=== PATIENT | female | born 1975 | race Caucasian/White ===

== ENCOUNTER 2017-08-16 12:50 | Emergency (ER) | payer BC ==
[~2017-08-16] VITALS: Ht 167.6 cm; Wt 59.0 kg
--- NOTE | 2017-08-16 14:03 | EKG ---
[facility] [address] [place] [address] Test Date: 2017-08-16 Test Time: 13:16:10 Pat Name: TESHA THOMPSON Department: Room: Gender: F Supervisor Mapping: : 1975 Requested By: Deepa FREED Order Number: [id number] Reading MD: Measurements Intervals Regent Rate: 62 P: 46 HI: 160 QRS: 1 QRSD: 88 T: 42 QT: 390 QTc: 398 Interpretive Statements SINUS RHYTHM ATRIAL PREMATURE COMPLEX(ES) QRS(T) CONTOUR ABNORMALITY CONSIDER ANTEROLATERAL MYOCARDIAL DAMAGE RI6.01 Unconfirmed report No previous ECG available for comparison
[2017-08-16 14:38] LABS: HEMATOCRIT 41.6 % (36.0-47.0); HEMOGLOBIN 14.4 g/dL (12.0-15.5); RED BLOOD COUNT 4.54 x10^6/uL (3.50-5.40); RED CELL DISTRIBUTION WIDTH 12.6 % (11.5-14.5); WHITE BLOOD COUNT 12.5 x10^3/uL (4.0-11.0)
[2017-08-16 14:43] VITALS: BP 124/66
[2017-08-16 14:50] LABS: CALCIUM 9.5 mg/dL (8.5-10.1); CREATININE 0.6 mg/dL (0.6-1.0); GFR 111.3; POTASSIUM 4.1 mmol/L (3.5-5.1)
[2017-08-16 14:55] LABS: ALBUMIN 4.1 g/dL (3.4-5.0); ALBUMIN/GLOBULIN RATIO 1.4 (1.0-1.7); TOTAL BILIRUBIN 0.5 mg/dL (0.2-1.0); TOTAL PROTEIN 7.1 g/dL (6.4-8.2)
[2017-08-16 15:20] LABS: NEG OBC UR NEG; POS OBC UR POS
--- NOTE | 2017-08-16 16:07 | PHYS DOC ---
Past Medical History Past Medical History: No Pertinent History Past Surgical History: No Surgical History Alcohol Use: Rarely Drug Use: None Adult General Chief Complaint Chief Complaint: SYNCOPE HPI HPI Patient is a 41 year old female with complaints of syncope today. Patient has been having usual state of health with no recent illnesses, no traumas. Patient was talking to a coworker in the office when she passed out she hit her head on the ground, there was no witnessed seizure-like activity. Patient hit her head on the ground. Patient feels back to her baseline. She states that EMS told that her pulse was slow. Patient only complains of pain in the back of her head when she hit on the ground, she has no other complaints at this time. Review of Systems Review of Systems Constitutional: Denies fever or chills [] Eyes: Denies change in visual acuity, redness, or eye pain [] HENT: Pain in back of the head Respiratory: Denies cough or shortness of breath [] Cardiovascular: No chest pain GI: Denies abdominal pain, nausea, vomiting, or diarrhea [] : Denies dysuria or hematuria [] Musculoskeletal: Denies back pain or joint pain [] Integument: Denies rash or skin lesions [] Neurologic: Denies headache, focal weakness or sensory changes [] All other systems are reviewed and found to be negative Allergies Allergies Allergies Coded Allergies Type Severity Reaction Last Updated Verified No Known Drug Allergies 08/16/17 No Physical Exam Physical Exam Constitutional: Well developed, well nourished, no acute distress, non-toxic appearance. [] HENT: Normocephalic, atraumatic, no signs of basilar skull fracture, dry mucous membranes, nose normal. [] Eyes: PERRLA, EOMI, conjunctiva normal, no discharge. [] Neck: Normal range of motion, no tenderness, supple, no stridor. No step-offs Cardiovascular:Heart rate regular rhythm, no murmur, equal pulses, normal perfusion Lungs & Thorax: Bilateral breath sounds clear to auscultation, no tachypnea Abdomen: Bowel sounds normal, soft, no tenderness, no masses, no pulsatile masses. [] Skin: Warm, dry, no erythema, no rash. [] Back: No tenderness, normal range of motion Extremities: No tenderness, no cyanosis, no clubbing, ROM intact, no edema. No signs of DVT Neurologic: Alert and oriented X 3, normal motor function, normal gross sensory function, no focal deficits noted. [id number] within normal limits, no pronator drift Psychologic: Affect normal, judgement normal, mood normal. [] Current Patient Data Vital Signs Vital Signs Date Time Temp Pulse Resp B/P (MAP) Pulse Ox O2 Delivery O2 Flow Rate FiO2 08/16/17 15:22 18 99 08/16/17 14:43 68 124/66 (85) Room Air 08/16/17 13:15 97.8 97.8 Lab Values Laboratory Tests Test 08/16/17 13:25 08/16/17 13:55 Urine Test Negative (NEG) White Blood Count 12.5 x10^3/uL (4.0-11.0) H Red Blood Count 4.54 x10^6/uL (3.50-5.40) Hemoglobin 14.4 g/dL (12.0-15.5) Hematocrit 41.6 % (36.0-47.0) Mean Corpuscular Volume 92 fL (79-100) Mean Corpuscular Hemoglobin 32 pg (25-35) Mean Corpuscular Hemoglobin Concent 35 g/dL (31-37) Red Cell Distribution Width 12.6 % (11.5-14.5) Platelet Count 187 x10^3/uL (140-400) Sodium Level 142 mmol/L (136-145) Potassium Level 4.1 mmol/L (3.5-5.1) Chloride Level 104 mmol/L (98-107) Carbon Dioxide Level 30 mmol/L (21-32) Anion Gap 8 (6-14) Blood Urea Nitrogen 17 mg/dL (7-20) Creatinine 0.6 mg/dL (0.6-1.0) Estimated GFR (Cockcroft-Gault) 111.3 BUN/Creatinine Ratio 28 (6-20) H Glucose Level 95 mg/dL (70-99) Calcium Level 9.5 mg/dL (8.5-10.1) Total Bilirubin 0.5 mg/dL (0.2-1.0) Aspartate Amino Transferase (AST) 16 U/L (15-37) Alanine Aminotransferase (ALT) 27 U/L (14-59) Alkaline Phosphatase 59 U/L (46-116) Troponin I Quantitative < 0.017 ng/mL (0.000-0.055) Total Protein 7.1 g/dL (6.4-8.2) Albumin 4.1 g/dL (3.4-5.0) Albumin/Globulin Ratio 1.4 (1.0-1.7) Laboratory Tests 08/16/17 13:55 Laboratory Tests 08/16/17 13:55 EKG EKG 1317 62, sinus rhythm, no STEMI[] Radiology/Procedures Radiology/Procedures [] Course & Med Decision Making Course & Med Decision Making Pertinent Labs and Imaging studies reviewed. (See chart for details) [] Dragon Disclaimer Dragon Disclaimer This electronic medical record was generated, in whole or in part, using a voice recognition dictation system. Departure Departure Impression: Primary Impression: Syncope Additional Impression: Dehydration Disposition: 01 HOME, SELF-CARE Condition: STABLE Referrals: JOCELYN OSBORNE (PCP) Please follow-up with your PCP in 2 days for recheck and reevaluation and possible further testing. If your symptoms symptoms return or new concerning symptoms develop please return to the ED immediately Patient Instructions: Dehydration, Adult, Rehydration, Adult, Syncope Problem Qualifiers Deepa FREED MD Aug 16, 2017 16:07
== END 2017-08-16 16:12 | disposition home or self-care (01) ==
LOC: ER 12:50
DX: R55 Syncope and collapse (principal); E86.0 Dehydration; R51 Headache; W18.09XA Striking against other object with subsequent fall, initial encounter; Y93.89 Activity, other specified; Y99.8 Other external cause status; Y92.89 Other specified places as the place of occurrence of the external cause
CPT/HCPCS: 36415; 80053; 81025; 84484; 85027; 93005; 99285-25